=== PATIENT | female | born 1940 | race Caucasian/White ===

== ENCOUNTER 2017-05-17 16:27 | Inpatient (IN) | payer MEDICARE, OTHER ==
[2017-05-17 17:25] LABS: HEMATOCRIT 35.1 % (36.0-48.0); HEMOGLOBIN 11.5 g/dL (12-16); MCH 26.7 pg (26.0-34.0); MCHC 32.8 g/dL (31.0-37.0); MCV 81.4 fL (80.0-100.0); PLATELET COUNT 87 10x3/uL (130-400); RBC 4.31 10x6/uL (4.00-5.40); RDW 15.3 % (11.5-14.5)
[2017-05-17 17:27] LABS: WBC 1.6 10x3/uL (4.8-10.8)
[2017-05-17 17:32] LABS: APTT 48.2 SECONDS (22.8-39.4); INR 2.66 (0.85-1.17); PROTIME 28.5 SECONDS (11.6-15.0)
[2017-05-17 17:33] LABS: D-DIMER-QUANTITATIVE 0.87 ug/mLFEU (0.20-0.54)
[2017-05-17 17:49] LABS: ALBUMIN 3.6 g/dL (3.4-5.0); ALKALINE PHOSPHATASE 137 U/L (46-116); ALT (SGPT) 22 U/L (10-68); CALC OSMOLALITY 282 mosm/kg (275-300); CALCIUM 10.3 mg/dL (8.5-10.1); CARBON DIOXIDE 29.6 mmol/L (21.0-32.0); CHLORIDE - SERUM 105 mmol/L (98-107); CREATININE - SERUM 0.8 mg/dL (0.6-1.3); GLUCOSE 107 mg/dL (74-106); POTASSIUM - SERUM 4.2 mmol/L (3.5-5.1); PROTEIN - SERUM 6.7 g/dL (6.4-8.2); SODIUM 140 mmol/L (136-145); UREA NITROGEN 25 mg/dL (7-18); eGFR NON AFRICAN AMERICAN 74 mL/min (90-120)
[2017-05-17 18:00] LABS: CREATINE KINASE 22 UL (21-215); PRO BNP 1313 pg/mL (0-450)
[2017-05-17 18:31] LABS: LYMPHOCYTES 49 % (15-50); MONOCYTES 14 % (2-11); NEUTROPHILS 37 % (40-80); PLATELET ESTIMATE DECREASED
[2017-05-17] MEDS ORDERED: COUMADIN5 MG PO (21:01)
[2017-05-17] MEDS ORDERED: CENTRUM SILVER1 TA1 PO (21:01)
[2017-05-17] MEDS ORDERED: COREG6.25 MG PO (21:01)
[2017-05-17 22:07] VITALS: BP 128/57; BMI 17.7
[2017-05-18] VITALS: BP 115/64
--- NOTE | 2017-05-18 00:42 | NUR ---
PT IS AWAKE, ALERT, ORIENTED UPON ARRIVAL TO ROOM FROM ER, WITH FAMILY AT SIDE. PT STATED SHE JUST DOES NOT FEEL GOOD. TURKEY SANDWICH AND WATER GIVEN TO PATIENT. PT DID NOT CURRENTLY HAVE ANY NEEDS. THE SHIFT HAS PROGRESSED, PT IS C/O CHRONIC BACK AND ASKING FOR SOMETHING TO HELP HER SLEEP. I DID GET PT A WARM PACK TO PUT ON HER BACK AND REPOSTIONED HER PILLOW FOR COMFORT. PT STATES SHE TAKES A SMALL PIECE OF AN AMBIEN SOMETIMES AT HOME. WILL CONTINUE TO MONITOR CLOSELY. PT TO CALL WITH ANY NEEDS. BED LOW, CALL LIGHT IN REACH, SIDE RAILS X 2, HOB 30-35 DEGREES.
--- NOTE | 2017-05-18 02:49 | NUR ---
I ASSISTED PT TO BATHROOM, PT STATES THE WARM PACK DID HELP WITH HER BACK PAIN, BUT THAT SHE IS STILL UNABLE TO SLEEP. PT STATED THAT GETTING UP AND WALKING ALSO HELPED HER FEEL BETTER. PT DENIES ANY NEEDS AT THIS TIME. PT BACK IN BED WITHOUT ANY DIFFICULTY. CONTINUE TO MONITOR CLOSELY. BED LOW, CALL LIGHT IN REACH, SIDE RAILS X 2, HOB 30 DEGREES.
[2017-05-18 04:00] VITALS: BP 117/71
--- NOTE | 2017-05-18 08:07 | NUR ---
ASSESSMENT DONE. DENIES NEEDS.
[2017-05-18 08:11] VITALS: BP 106/61
--- NOTE | 2017-05-18 08:32 | NUR ---
RESTS IN BED. IV PATENT. CALL CL;IGHT IN REACH. NO NEEDS VOICED AT THIS TIME.
[2017-05-18 12:10] VITALS: BP 118/68
[2017-05-18 13:23] LABS: BASOPHILS 1.3 % (0-2); EOSINOPHILS 3.2 % (0-7); HEMATOCRIT 33.4 % (36.0-48.0); IMMATURE GRANULOCYTES 0.6 % (0-5); MCH 27.1 pg (26.0-34.0); MCHC 32.9 g/dL (31.0-37.0); MCV 82.3 fL (80.0-100.0); MEAN PLATELET VOLUME 10.2 fL (7.4-10.4); MONOCYTES 29.1 % (2-11); NEUTROPHILS 34.8 % (40-80); PLATELET COUNT 87 10x3/uL (130-400); RBC 4.06 10x6/uL (4.00-5.40); RDW 15.4 % (11.5-14.5)
[2017-05-18 13:33] LABS: ANION GAP 11.8 mmol/L (8-16); CALCIUM 8.9 mg/dL (8.5-10.1); CREATININE - SERUM 0.8 mg/dL (0.6-1.3); POTASSIUM - SERUM 3.8 mmol/L (3.5-5.1)
[2017-05-18 13:41] LABS: WBC 1.6 10x3/uL (4.8-10.8)
[2017-05-18 13:49] VITALS: BMI 17.7
[2017-05-18 15:26] VITALS: BP 109/51
[2017-05-18] MEDS ORDERED: COUMADIN2.5 MG PO (15:49)
--- NOTE | 2017-05-18 18:18 | NUR ---
WITHOUT CHANGES OR DISTRESS NOTED AT THIS TIME. DENIES NEEDS.
[2017-05-18 18:30] LABS: APPEARANCE CLEAR (CLEAR); BILIRUBIN NEGATIVE (NEGATIVE); COLOR AMBER (YELLOW); GLUCOSE NEGATIVE (NEGATIVE); KETONE NEGATIVE (NEGATIVE); NITRITE NEGATIVE (NEGATIVE); PROTEIN NEGATIVE (NEGATIVE); SPECIFIC GRAVITY 1.025 (1.005-1.020); UROBILINOGEN NORMAL (NORMAL)
--- NOTE | 2017-05-18 19:10 | NUR ---
ASSESSMENT COMPLETE, A&O. RESPERATIONS EVEN ON RA. IV TO RIGHT AC WITH NS INFUSING AT 125 SITE CLEAN AND DRY. IV TO LEFT AC WITH CARDIZEM INFUSING AT 10 CC. 82 C-AFIB ON MONITOR. PT DENIES PAIN OR NEEDS, BED LOW, CL IN REACH. WILL CONT TO MONITOR.
[2017-05-18 20:00] VITALS: BP 116/63
--- NOTE | 2017-05-18 20:03 | NUR ---
SECOND PILLOW GIVEN AT PT REQUEST, PLACED BEHIND BACK.
--- NOTE | 2017-05-18 21:03 | NUR ---
UP WITH ASSIST TO BR.
--- NOTE | 2017-05-18 23:59 | NUR ---
RESTING WITH EYES CLOSED, RESPERATIONS EVEN, NO S/S DISTRESS NOTED
--- NOTE | 2017-05-19 01:57 | NUR ---
LYING IN BED WITH EYES CLOSED, CALL LIGHT IN REACH. WILL CONTINUE WITH PLAN OF CARE.
--- NOTE | 2017-05-19 02:17 | NUR ---
UP WITH ASSIST TO BR. GAIT STEADY.
[2017-05-19 04:00] VITALS: BP 127/61
[2017-05-19 05:56] LABS: BASOPHILS 1.1 % (0-2); EOSINOPHILS 2.7 % (0-7); HEMOGLOBIN 11.1 g/dL (12-16); IMMATURE GRANULOCYTES 0.5 % (0-5); LYMPHOCYTES 30.4 % (15-50); MCH 26.7 pg (26.0-34.0); MCHC 32.6 g/dL (31.0-37.0); MCV 81.7 fL (80.0-100.0); MEAN PLATELET VOLUME 10.7 fL (7.4-10.4); MONOCYTES 29.3 % (2-11); PLATELET COUNT 94 10x3/uL (130-400); RBC 4.16 10x6/uL (4.00-5.40); RDW 15.4 % (11.5-14.5)
[2017-05-19 06:09] LABS: CALC OSMOLALITY 285 mosm/kg (275-300); CALCIUM 8.7 mg/dL (8.5-10.1); CHLORIDE - SERUM 107 mmol/L (98-107); CREATININE - SERUM 0.7 mg/dL (0.6-1.3); GLUCOSE 100 mg/dL (74-106); INR 2.87 (0.85-1.17); POTASSIUM - SERUM 3.7 mmol/L (3.5-5.1); PROTIME 30.3 SECONDS (11.6-15.0); SODIUM 142 mmol/L (136-145); UREA NITROGEN 22 mg/dL (7-18); eGFR NON AFRICAN AMERICAN 86 mL/min (90-120)
[2017-05-19 06:15] LABS: WBC 1.8 10x3/uL (4.8-10.8)
--- NOTE | 2017-05-19 07:33 | NUR ---
ASSESSMENT DONE. DENIES NEEDS.
[2017-05-19 07:42] VITALS: BP 113/65
--- NOTE | 2017-05-19 07:45 | NUR ---
IV PATENT. CALL LIGHT IN REACH. NO NEEDS VOICED. WILL CONT. PLAN OF CARE.
[2017-05-19 15:37] VITALS: BP 110/52
--- NOTE | 2017-05-19 17:55 | NUR ---
WITHOUT CHANGES OR DISTRESS NOTED AT THIS TIME. . DENIES NEEDS.
[2017-05-19 19:00] VITALS: BP 123/77
--- NOTE | 2017-05-19 19:52 | NUR ---
PT AWAKE, ALERT, ORIENTED, SITTING UP IN BED, DENIES ANY NEEDS. CONTINUE TO MONITOR CLOSELY.
[2017-05-20 04:34] VITALS: BP 134/67
--- NOTE | 2017-05-20 04:38 | NUR ---
PT LYING IN BED, RESTING COMFORTABLY, AWAKE, ALERT, ORIENTED. PT STATES SHE WAS ABLE TO SLEEP SOME THIS SHIFT R/T THE AMBIEN. PT DENIES ANY NEEDS, IS ASKING WHEN HER POSSIBLE D/C WILL BE TODAY. ALSO, I DID SL PTS IV AFTER HER ANTIBIOTIC ADMINISTRATION R/T PTS REQUEST. CONTINUE TO MONITOR CLOSELY. BED LOW, CALL LIGHT IN REACH, SIDE RAILS X 2, HOB 35 DEGREES.
[2017-05-20 06:57] LABS: BASOPHILS 1.8 % (0-2); EOSINOPHILS 3.6 % (0-7); HEMOGLOBIN 10.5 g/dL (12-16); IMMATURE GRANULOCYTES 0.6 % (0-5); LYMPHOCYTES 33.3 % (15-50); MCH 26.6 pg (26.0-34.0); MCHC 32.8 g/dL (31.0-37.0); MEAN PLATELET VOLUME 10.6 fL (7.4-10.4); MONOCYTES 32.1 % (2-11); NEUTROPHILS 28.6 % (40-80); PLATELET COUNT 100 10x3/uL (130-400); RBC 3.95 10x6/uL (4.00-5.40); RDW 15.6 % (11.5-14.5)
[2017-05-20 07:03] LABS: WBC 1.7 10x3/uL (4.8-10.8)
[2017-05-20 07:08] LABS: CALC OSMOLALITY 285 mosm/kg (275-300); CALCIUM 8.8 mg/dL (8.5-10.1); CARBON DIOXIDE 24.1 mmol/L (21.0-32.0); CHLORIDE - SERUM 108 mmol/L (98-107); CREATININE - SERUM 0.6 mg/dL (0.6-1.3); GLUCOSE 97 mg/dL (74-106); POTASSIUM - SERUM 3.7 mmol/L (3.5-5.1); SODIUM 142 mmol/L (136-145); UREA NITROGEN 21 mg/dL (7-18); eGFR NON AFRICAN AMERICAN > 90 mL/min (90-120)
[2017-05-20 07:21] LABS: INR 2.39 (0.85-1.17); PROTIME 26.2 SECONDS (11.6-15.0)
[2017-05-20 07:23] LABS: APTT 62.4 SECONDS (22.8-39.4)
--- NOTE | 2017-05-20 07:34 | NUR ---
ASSESSMENT DONE. PATIENT DENIES NEEDS.
--- NOTE | 2017-05-20 07:49 | NUR ---
RESP UO ON . UP SOB EATING BRK. CALL LIGHT IN REACH. WILL CONT. PLAN OF CARE.
[2017-05-20 08:46] VITALS: BP 120/5
[2017-05-20] MEDS ORDERED: ZITHROMAX500 MG PO (11:47)
[2017-05-20] MEDS ORDERED: FLORAJEN3 CAPS460 MG PO (11:51)
[2017-05-20] MEDS ORDERED: LOVENOX60 MG/0.6 SC (11:52)
[2017-05-20 12:12] VITALS: BP 115/54
--- NOTE | 2017-05-20 12:48 | NUR ---
Patient Name: ARMIDA ROCHA Admission Status: ER Accout number: [id number] Admission Date: 05-17-2017 : 1940 Admission Diagnosis:CHRONIC ATRIAL FIBRILLATION Attending: TICO VAZQUEZ Current LOS: 3 Anticipated DC Date: 05-20-2017 Planned Disposition: Home Primary Insurance: MEDICARE A & B Discharge Planning Comments: * Is the patient Alert and Oriented? Yes 0 * How many steps to enter\exit or inside your home? NONE 0 * PCP DR[facility] VALDEZ AT [facility] 0 * [facility] 0 * Preadmission Environment Home with Family 0 * ADLs Independent 0 * Equipment None 0 * Other Equipment NO MEDICAL EQUIPMENT PROVIDER PREFERENCE 0 * List name and contact numbers for known caregivers / representatives who currently or will assist patient after discharge: HEIDI ROCHA, SPOUSE, 0 * Community resources currently utilized None 0 * Please name any agencies selected above. NONE 0 * Additional services required to return to the preadmission environment? No 0 * Can the patient safely return to the preadmission environment? Yes 0 * Has this patient been hospitalized within the prior 30 days at any hospital? No 0 CM MET WITH PT AND SPOUSE IN ROOM TO DISCUSS DISCHARGE PLANNING AND NEEDS. PT REPORTS LIVING AT HOME INDEPENDENTLY WITH SPOUSE. PT HAS NO MEDICAL EQUIPMENT AND NO OUTSIDE SERVICES ASSISTING IN THE HOME. CM DISCUSSED AVAILABILITY OF HOME HEALTH, REHAB SERVICES AND MEDICAL EQUIPMENT. PT DENIES DISCHARGE NEEDS, REPORTS HER IS HERE TO PICK HER UP FOR DISCHARGE HOME. PT AND SPOUSE EXPRESSED THEY HAVE BEEN READY TO LEAVE SINCE YESTERDAY AND CAN SIT AROUND AT HOME WELL AT THE HOSPITAL. IMPORTANT MESSAGE FROM [employer] PROVIDED AND EXPLAINED. CM PAGED AND SPOKE TO JOSE KIRBY, NOTIFIED OF PT'S WANTING TO LEAVE SOON POSSIBLE TODAY. CM TO FOLLOW AND ASSIST IF NEEDED. Contact Center Director: Malcom Sheridan
--- NOTE | 2017-05-20 13:09 | CN ---
PATIENT NAME:ARMIDA ROCHA MEDICAL RECORD: [id number] : 40 LOCATION:D. D.2121 ADMIT DATE: 05/17/17 ACCOUNT: [id number] CONSULTING PHYSICIAN: HETAL GONZALEZ MD REFERRING PHYSICIAN: TICO VAZQUEZ MD DATE OF CONSULTATION: 05/18/2017 Cardiology Consultation DIAGNOSES: 1. Atrial fibrillation, chronic. 2. Pneumonia. 3. Coumadin anticoagulation. 4. History of aortic valve replacement. 5. History of mitral valve replacement. HISTORY OF PRESENT ILLNESS: Mrs. Rocha is well known to us with a history of aortic valve replacement, mitral valve replacement and cardiomyopathy, ejection fraction in the 40% range. She has chronic atrial fibrillation, rate controlled on Coreg. She is also on warfarin. She is now admitted with pneumonia. Her atrial fibrillation has been in the 80-100 range. PHYSICAL EXAMINATION: GENERAL APPEARANCE: Well-nourished, well-developed, appears stated age. Level of distress, comfortable. PSYCHIATRIC: Mental status, alert, normal affect. Orientation, oriented to time, place and person. EYES: Lids and conjunctiva, noninjected. No discharge, no pallor. ENT: Lips, teeth, gums, normal dentition. Oropharynx, no cyanosis, no pallor. NECK: Carotid arteries, bilateral normal upstroke, no bruits, no thrills. JUGULAR VEINS: No jugular venous pressure or distention. CERVICAL LYMPH NODES: Nontender, nonenlarged. THYROID: Not enlarged. Nontender. No nodules. LUNGS: Respiratory effort, unlabored. CHEST: Normal curvature. No thoracic deformity. No chest wall tenderness. Percussion, resonant. Auscultation, clear. No wheezes, no rales, no rhonchi. CARDIOVASCULAR: Precordial exam, nondisplaced. No heaves or pericardial thrills. Rate and rhythm, regular. Heart sounds, normal S1, normal S2. No S3, no gallop, no rub. Systolic murmur, not heard. Diastolic murmur, not heard. EXTREMITIES: No cyanosis, no edema. Peripheral pulses, full and equal in all extremities, except as noted. No bruits appreciated. ABDOMEN: Soft, nondistended. Normal aorta. No bruit. Nontender. No masses. Liver, nontender, no hepatomegaly. Spleen, nontender, no splenomegaly. MUSCULOSKELETAL: No joint tenderness. No joint swelling. No erythema. NEUROLOGICAL: Normal gait, normal strength, normal tone. SKIN: Warm and dry. REVIEW OF SYSTEMS: The patient reports easy bruising but reports no swollen glands. The patient reports no fever, no night sweats, no significant weight gain, no significant weight loss. No significant exercise tolerance. The patient reports no dry eyes, no irritation, no vision change. Patient reports no difficulty hearing and no ear pain. Patient reports no frequent nose bleeds or nose and sinus problems. Patient reports on arm pain on exertion. No shortness of breath while lying down. No history of heart murmur. Patient reports no cough, no wheezing or coughing up blood. Patient reports no CONSULT REPORT [id number] AJ,ARMIDA abdominal pain, no vomiting. Normal appetite. No diarrhea and not vomiting blood. No nausea and no constipation. Patient reports no incontinence. No difficulty urinating. No hematuria. No increased frequency. Patient reports no muscle aches. No weakness, no arthralgias, no back pain. No swelling of the extremities. Patient reports no abnormal mole, no jaundice, no rashes. Reports no loss of consciousness. No weakness and no numbness. No seizures, dizziness, or headaches. The patient reports no depression, no sleep disturbance, feeling safe in a relationship and no alcohol abuse. Patient reports on fatigue. Reports no runny nose or sinus pressure. No itching, no hives, and no frequent sneezing. OVERALL IMPRESSION: Atrial fibrillation. She is currently on a diltiazem drip. We will just restart her Coreg, then the diltiazem drip can be weaned. No other cardiac workup or treatment is necessary. TRANSINT:[id number] Voice Confirmation ID: [id number] DOCUMENT ID: [id number] HETAL GONZALEZ MD at 1309 CC: [id number] DICTATION DATE: 05/18/17 1150 [employer] HEAD: 05/18/17 1245 [place] [address]
[2017-05-20] MEDS ORDERED: COREG6.25 MG PO (15:05)
--- NOTE | 2017-05-20 15:06 | NUR ---
PATIENT DC HOME PER PERSONAL CAR.
--- NOTE | 2017-05-20 17:07 | NUR ---
Patient Name: ARMIDA ROCHA Encounter No: [id number] : 1940 Primary Insurance: MEDICARE A & B Anticipated DC Date: 05-20-2017 Planned Disposition: Home DCP follow-up note: CM RECEIVED CALL FROM DR. CALLOWAY WHO REPORTED THAT PT WAS DISCHARGED HOME AND CANNOT AFFORD HER LOVENOX, REPORTED TO BE $800.00. CM CALLED PT [phone]; PT REPORTED THAT SHE HAD LEFT [facility], THE GENERIC LOVENOX WAS $800 AND HER INSURANCE WOULD NOT COVER IT AND NEEDED A DOCTOR TO CALL TO TELL THEM IT IS MEDICALLY NECESSARY. CM EXPLORED ASSISTANCE PROGRAMS WITH PT, PT REPORTS THE PHARMACIST ALREADY LOOKED FOR ONLINE COUPONS THAT DID NOT WORK; PT AND HER SPOUSE MAKE MORE THAN $[id number] PER YEAR, AND HAVE A MEDICARE PRESCRIPTION PLAN THAT MAKE THEM INELIGIBLE FOR THE LOVENOX ASSISTANCE PROGRAM AVAILABLE THROUGH [employer]. CM SUGGESTED THAT PT CALL COMPETING PHARMACIES FOR A POSSIBLE LOWER TREJO. CM ENSURED PT HAS CM PHONE NUMBER FOR CONTACT WITH RESULTS OF HER SEARCH FOR LOWER COST LOVENOX. CM PAGED AND SPOKE TO DR. CALLOWAY, NOTIFIED OF RESULT, DR. CALLOWAY REORTS NOT BEING ABLE TO DO PA WITH INSURANCE [employer] AT PRESENT TIME DUE TO LACK OF STAFF. Malcom Sheridan, CASE MANAGEMENT
== END 2017-05-20 15:08 | disposition home or self-care (01) | DRG 808 ==
LOC: D.ER 16:27 → D.M2 19:19
PROVIDERS: Family Medicine; Internal Medicine Hematology & Oncology; Specialist; ADMIT Family Medicine
DX: D61.818 Other pancytopenia (principal); J18.9 Pneumonia, unspecified organism; I42.9 Cardiomyopathy, unspecified; I48.2 Chronic atrial fibrillation; Z79.01 Long term (current) use of anticoagulants; Z95.2 Presence of prosthetic heart valve; G47.00 Insomnia, unspecified

== ENCOUNTER 2017-05-25 07:21 | Outpatient (CLI) | payer MEDICARE, OTHER ==
[~2017-05-25 07:21] MED LIST: CENTRUM SILVER1 TA1 PO; COREG6.25 MG PO; COUMADIN2.5 MG PO; COUMADIN5 MG PO; FLORAJEN3 CAPS460 MG PO; LOVENOX60 MG/0.6 SC; ZITHROMAX500 MG PO
[2017-05-25 08:21] LABS: HEMATOCRIT 32.5 % (36.0-48.0); HEMOGLOBIN 10.7 g/dL (12-16); MCH 26.8 pg (26.0-34.0); MCHC 32.9 g/dL (31.0-37.0); MCV 81.3 fL (80.0-100.0); MEAN PLATELET VOLUME 9.5 fL (7.4-10.4); PLATELET COUNT 93 10x3/uL (130-400); RDW 16.2 % (11.5-14.5)
[2017-05-25 08:29] LABS: APTT 37.9 SECONDS (22.8-39.4); INR 1.07 (0.85-1.17); PROTIME 13.7 SECONDS (11.6-15.0)
[2017-05-25 08:32] LABS: CALC OSMOLALITY 278 mosm/kg (275-300); CALCIUM 9.1 mg/dL (8.5-10.1); CARBON DIOXIDE 26.5 mmol/L (21.0-32.0); CHLORIDE - SERUM 103 mmol/L (98-107); CREATININE - SERUM 0.7 mg/dL (0.6-1.3); GLUCOSE 97 mg/dL (74-106); POTASSIUM - SERUM 3.7 mmol/L (3.5-5.1); SODIUM 138 mmol/L (136-145); UREA NITROGEN 20 mg/dL (7-18); eGFR NON AFRICAN AMERICAN 86 mL/min (90-120)
[2017-05-25 09:07] LABS: BASOPHILS 4 % (0-2); EOSINOPHILS 10 % (0-7); LYMPHOCYTES 55 % (15-50); MONOCYTES 6 % (2-11); NEUTROPHILS 10 % (40-80); PLATELET ESTIMATE DECREASED; POIKILOCYTOSIS 1+
[2017-05-25 09:37] VITALS: BP 134/55; BMI 21.4
--- NOTE | 2017-05-25 12:04 | NUR ---
1150 ON V/S MACHINE BACK FROM DEEP BONE BIOPSY. RT BACK HIP AREA DRESSING C/D/I. NO BLEEDING AND PATIENT DENIES PAIN.
--- NOTE | 2017-05-25 12:07 | NUR ---
1207 REPORT TO DAVID REAL R.N.
--- NOTE | 2017-05-25 12:12 | NUR ---
1212 HR 101 B/P 120/88. EXPLAINED CORREG BEING GIVEN.
--- NOTE | 2017-05-25 18:00 | NUR ---
1150--ALL V/S CHARTED ON POST PROCEDURE VITAL SIGN SHEET ON CHART. JOSE VALVERDE 1430--PT VOIDS, IV DC'D. JOSE VALVERDE 1500--DISCHARGE INSTRUCTIONS GIVEN, PT VERBALIZES UNDERSTANDING. PT OFF UNIT VIA WC. JOSE VALVERDE
== END 2017-05-25 15:00 | disposition home or self-care (01) ==
LOC: D.OPS 07:21 → D.SP 09:00 → D.OPS 10:00 → D.CT 10:00 → D.OPS 15:00
PROVIDERS: Radiology Diagnostic Radiology
DX: D61.818 Other pancytopenia (principal); Z01.812 Encounter for preprocedural laboratory examination

== ENCOUNTER → 2017-07-15 10:36 | Outpatient (CLI) | payer MEDICARE, OTHER | END | disposition home or self-care (01) | LOC: D.US 10:36 | DX: D61.818 Other pancytopenia (principal); R18.8 Other ascites ==